=== PATIENT | male | born 1970 | race Caucasian/White ===

== ENCOUNTER → 2020-06-18 | Outpatient (CLI) | payer BC, SELFPAY | END | disposition home or self-care (01) | LOC: LABSPEC 13:32 | PROVIDERS: Visit Provider Family Medicine Hospice and Palliative Medicine | DX: Z11.59 Encounter for screening for other viral diseases (principal) | CPT/HCPCS: 87635; 94799; U0003 ==

== ENCOUNTER 2020-07-11 14:33 | Emergency (ER) | payer BC, SELFPAY ==
[2020-07-11 14:36] VITALS: BP 144/85; PULSE 83; RESP 17; TEMP 36.3; O2SAT 95; BMI 42.7
--- NOTE | 2020-07-11 16:16 | MRI_ITS ---
STUDY: MRA OF THE HEAD WITHOUT CONTRAST REASON FOR EXAM: Male, 50 years old. headache, double vision L eye TECHNIQUE: 3-D [id number] (TOF) imaging was performed with MIPs. The study was performed unenhanced. COMPARISON: None. FINDINGS: Normal bilateral petrous carotid arteries. Normal right cavernous carotid artery with a normal supraclinoid bifurcation. Normal left cavernous carotid artery with a normal supraclinoid bifurcation. Normal right A1 segments of the anterior cerebral artery. Normal left A1 segments of the anterior cerebral artery. Normal intact anterior communicating artery (ACOM). Normal bilateral A2 segments of the anterior cerebral arteries. Normal right M1 and M2 segments of the middle cerebral arteries, with a normal M1 bifurcation. Normal left M1 and M2 segments of the middle cerebral arteries, with a normal M1 bifurcation. Normal right posterior communicating artery (PCOM). Normal left posterior communicating artery (PCOM). Normal bilateral vertebral arteries. Normal basilar artery with a normal basilar bifurcation. The visualized bilateral superior cerebellar (SCA) arteries are normal. Normal bilateral P1, P2 and visualized P3 segments of the posterior cerebral arteries. There is no demonstrated aneurysm of the [place]. There is no major vessel occlusion or hemodynamically significant stenosis There is no demonstrated abnormality of the visualized brain. MRI/MRA Head ONLY without Contrast IMPRESSION: 1. There is no demonstrated aneurysm of the [place]. There is no major vessel occlusion or hemodynamically significant stenosis Electronically Signed: Alex Rajput MD at 19:35 EDT , Service support ,
--- NOTE | 2020-07-11 16:17 | ED.DCSUM_ITS ---
History of Present Illness Chief Complaint: Headache Detail of Chief Complaint: Double vision Informant: Patient Onset: Days, - - Intermittent for couple months, worse over the past 2 to 3 days. Timing: Intermittent Current Severity: Mild Maximum Severity: Severe Narrative: Patient presents secondary to headache and double vision. Patient was seen at [place] yesterday where head CT was unremarkable and eye pressures were normal. 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 He was sent to the ED for an MRA to rule out aneurysm and to further evaluate the cavernous sinus. Blood sugar at the office was 392. Patient does have a history of diabetes and takes metformin. He admits he does not watch his diet or check his blood sugars at home. He states he is actually had intermittent headaches for the past couple of months. He has noted some visual disturbances but is not sure that they actually correlate with the headaches. - Past Medical History (1) Hypertension Status: Chronic (2) Diabetes Status: Chronic Past Medical History - Allergies and Home Meds Allergies/Adverse Reactions: Allergies Penicillins [PCN] Allergy (Verified 07/11/20 14:35) Rao Primary Care Physician: Juan Rodriguez,Out of [NON-STAFF] - Doctors: Dr. Hamilton Prior records reviewed: Yes Lives: With Family Review of Systems General: Denies: Chills, Fever Eyes: Reports: Diplopia ENT: Denies: Bilateral ear pain, Rhinorrhea, Sore throat Cardiovascular: Denies: Chest pain Respiratory: Denies: Dyspnea, Cough Gastrointestinal: Reports: Nausea - Secondary to double vision. Denies: Abdominal pain Musculoskeletal: Denies: Swelling, Extremity Pain Skin: Denies: Rash Neurological: Reports: Headache. Denies: Weakness, Parasthesia Hematologic: Denies: Easy bruising, Easy bleeding Allergy: Denies: Uticaria Physical Exam Vital Signs/Narrative: Vital Signs Temp Pulse Resp BP Pulse Ox 07/11/20 14:36 97.4 F L 83 17 144/85 H 95 Inital Vital Signs reviewed: Yes General: Well nourished, Well developed Head: Normocephalic, Atraumatic Eyes: Perrl, EOMI, - - Mild cranial nerve III deficit on left ENT: Moist mucous membranes Neck: Supple Cardiovascular: Regular rate, Regular rhythm Respiratory: No distress, CTA bilaterally Abdomen: Soft, Nontender Extremities: Nontender Skin: Normal color Neurological: Alert, Oriented x3, Normal Strength, Normal Sensation Psychological: Normal affect Diagnostic/Tx/Re-eval 07/11/20 16:16 MRA Head ONLY without Contrast [MRI] Stat No demonstrated aneurysm of the [place]. There is no major vessel occlusion or hemodynamically significant stenosis. Laboratory Results 07/11/20 07/11/20 07/11/20 16:50 16:50 16:50 WBC 5.1 RBC 5.10 Hgb 15.8 Hct 45.3 MCV 88.8 MCH 31.0 MCHC 34.9 RDW Std Deviation 42.3 RDW Coeff of [place] 13.2 Plt Count 178 MPV 11.2 Immature Gran % (Auto) 0.400 Neut % (Auto) 58.9 Lymph % (Auto) 31.0 [place] % (Auto) 7.1 Eos % (Auto) 2.0 Baso % (Auto) 0.6 Absolute Neuts (auto) 3.0 Absolute Lymphs (auto) 1.58 Nucleated RBC % 0 Sodium 134 L Potassium 4.0 Chloride 100 Carbon Dioxide 25.0 Anion Gap 9 BUN 21 H Creatinine 1.32 H Estim Creat Clear Calc 63.99 Est GFR (MDRD) Af Amer 74 Est GFR (MDRD) Non-Af 62 BUN/Creatinine Ratio 15.9 Glucose 289 H Hemoglobin A1c 10.2 H Calcium 8.9 - Medical Decision Making Patient was given naproxen here for headache. MRI results are discussed with eugenie mayo. Ophthalmology will be updated the patient will follow-up as an outpatient. ED Disposition - Plan for ED Patient: Disposition: Home or Assisted Living Diagnosis: Cranial nerve III palsy Instructions: ED Double Vision Referrals: Louis Robert MD [STAFF PHYSICIAN] -
[2020-07-11 17:18] LABS: Absolute Lymphocyte Count 1.58 X10^3/uL (0.83-4.51); Basophil# 0.03 X10^3/uL; Basophil% 0.6 % (0-1); Hematocrit 45.3 % (40-54); Hemoglobin 15.8 g/dL (13.0-16.5); Lymphocyte # 1.58 X10^3/ul (4.0); Mean Corp Hgb Conc 34.9 g/dL (32-36); Mean Corpuscular Volume 88.8 fL (80-94); Mean Platelet Vol. 11.2 fl (6.2-12.0); Monocyte# 0.36 X10^3/uL; Monocyte% 7.1 % (0-10); NRBC Flagged by Analyzer 0 % (0-5); Neutrophil # 3.01 X10^3/uL (2.7-7.7); Neutrophil % 58.9 % (47-70); Platelet Count 178 K/mm3 (150-450); RBC Distribution Width CV 13.2 % (11.6-14.6); RBC Distribution Width SD 42.3 fl (35.1-43.9); White Blood Count 5.1 K/mm3 (4.4-11.0)
[2020-07-11 17:23] LABS: Anion Gap 9 (5-15); BUN 21 mg/dL (7-18); BUN/Creat Ratio 15.9 RATIO (10-20); Calcium,Total 8.9 mg/dL (8.5-10.1); Chloride 100 mmol/L (98-107); Creatinine, Serum 1.32 mg/dL (0.70-1.30); EST Glomerular Filtration Rate 62 mL/min (>60); Est Glom Filt Rate - Afr Amer 74 mL/min (>60); Estimated Creatinine Clearance 63.99 ml/min; Glucose 289 mg/dL (74-106); Sodium Level 134 mmol/L (136-145)
[2020-07-11 18:01] LABS: Hemoglobin A1c 10.2 % (3.8-5.6)
[2020-07-11] MEDS: 0.9% Normal Saline 1,000 ML 1000 ML IV (18:08)
[2020-07-11] MEDS: Naproxen 500 MG Tablet PO (20:00)
[2020-07-11 20:09] VITALS: BP 150/103; PULSE 66; RESP 16; O2SAT 95
[2020-07-11 21:33] VITALS: BP 139/87; PULSE 64; RESP 16; O2SAT 98
== END 2020-07-11 21:41 | disposition home or self-care (01) ==
PROVIDERS: Emergency Provider Emergency Medicine
DX: H49.00 Third [oculomotor] nerve palsy, unspecified eye (principal); E11.9 Type 2 diabetes mellitus without complications; I10 Essential (primary) hypertension; Z79.84 Long term (current) use of oral hypoglycemic drugs; Z79.899 Other long term (current) drug therapy
CPT/HCPCS: 70544; 80048; 83036; 85025; 96360; 96361; 99282; J7030; A4216

== ENCOUNTER → 2021-03-10 | Outpatient (CLI) | payer BC, SELFPAY | END | disposition home or self-care (01) | PROVIDERS: Visit Provider Dermatology Pediatric Dermatology | DX: L08.9 Local infection of the skin and subcutaneous tissue, unspecified (principal) | CPT/HCPCS: 87070; 87077; 87186; 87205 ==